=== PATIENT | female | born 1980 | race Caucasian/White ===

== ENCOUNTER 2018-07-18 12:21 | Emergency (ER) | payer BC ==
--- NOTE | 2018-07-18 14:51 | OBHP ---
Datetime: 07/18/2018 13:16 IP Adm Impression: Term, intrauterine IP Admit Plan: Observation/Evaluation; Discharge home Admit Comment, IP Provider: 38 yo female G1Po @ 39.0 GA presents because of lower pelvic pain. Pelvic pain begain this morning at 2am but denies gush of fluid. She denies vaginal bleeding, and loss of movement. PE: No acute distress Heart: S1 and S2, no murmurs, gallops or rubs. Lungs: Clear auscultation bilaterally. Abdomen: Gravid, soft, non-tender Vaginal Exam: No lesions present on inspection. Patient is 0cm dilated and station is -1. monitor: FHR: 120; Moderate, accelerations present and no decelerations. Category 1 tracing. Assessment: 38 yo female G1Po @ 39.0 GA presents because of lower pelvic pain found to have no cer vical change on exam. Plan: - patient and monitor was observed for >30min. - Patient being discharged and was counseled on attending her schedule appointment on Jennifer rsday but if anything were to change, including vaginal bleeding, gush of fluid or decreased mo vement to come back to the hospital. Addenudum by Dr. Becerril: I have evaluated the patient independently and I agree with the above Pelvic Type - PN: Adequate Extremities - PN: Normal Abdomen - PN: Normal Back - PN: Normal Breast - PN: Not Done Lungs - PN: Normal Heart - PN: Normal Thyroid - PN: Normal Neurologic - PN: Normal HEENT - PN: Normal General - PN: Normal FHR - Baseline A Provider: 120 Comments, ACOG Physical Exam: PE: No acute distress Heart: S1 and S2, no murmurs, gallops or rubs. Lungs: Clear auscultation bilaterally. Abdomen: Gravid, soft, non-tender Vaginal Exam: No lesions present on inspection. Patient is 0cm dilated and station is -1. monitor: FHR: 120; Moderate, accelerations present and no decelerations. Category 1 tracing. Vital Signs Provider: Reviewed; Within Normal Limits IP Chief Complaint: Uterine contractions NICHD Variability Prov Fetus A: Moderate 6-25bpm NICHD Accel Fetus A IP Provider: [id number] FHR Category Provider Fetus A: Category I NICHD Decel Fetus A IP Provider: None Dilatation, Provider: 0 Station, Provider: -1 Genitourinary Exam: Normal DTRs - PN: Not Done
--- NOTE | 2018-07-18 14:51 | OBDCSUM ---
Datetime: 07/18/2018 13:46 Discharged to, Provider: Home Follow up at, Provider: Doron Disch Instr Activity: Normal activity Disch Instr Diet: Regular Discharge Diagnosis, Provider: False Labor - Undelivered Discharge Time: 07/18/2018 13:46 Follow up in weeks, Provider: next well OB visit Disch Referrals: None
[2018-07-18 20:02] VITALS: BP 107/62; PULSE 81
== END 2018-07-18 13:30 | disposition home or self-care (01) ==
LOC: H.EROB2 12:21
DX: O26.93 Pregnancy related conditions, unspecified, third trimester (principal); R10.2 Pelvic and perineal pain; Z3A.39 39 weeks gestation of pregnancy

== ENCOUNTER 2018-07-19 08:02 | Inpatient (IN) | payer BC ==
[2018-07-19 08:04] VITALS: BMI 25.2
[2018-07-19] MEDS ORDERED: OXYTOCIN/0.9 % NS 20 UNIT/1,000 ML BAG IV ONE (08:05)
[2018-07-19] MEDS ORDERED: Oxytocin 30 UNIT 30 UNITS/500 ML BAG IV ONE ×2 (08:05→22:51)
[2018-07-19 10:47] LABS: HEMOGLOBIN 13.1 g/dL (12.0-16.0); MEAN CELL VOLUME 92.5 fl (81.0-99.0); MEAN CORPUSCULAR HEMOGLOBIN 31.3 pg (27.0-31.0); MEAN CORPUSCULAR HGB CONC 33.8 g/dL (33.0-37.0); RBC 4.2 Mil/uL (3.80-5.20); RED CELL DISTRIBUTION WIDTH 12.8 % (11.5-14.5)
[2018-07-19 18:43] VITALS: RESP 18
--- NOTE | 2018-07-19 22:46 | OBADHP ---
Datetime: 07/18/2018 13:16 Admit Comment, IP Provider: 38 yo female G1Po @ 39.0 GA presents because of lower pelvic pain. Pelvic pain begain this morning at 2am but denies gush of fluid. She denies vaginal bleeding, and loss of movement. PE: No acute distress Heart: S1 and S2, no murmurs, gallops or rubs. Lungs: Clear auscultation bilaterally. Abdomen: Gravid, soft, non-tender Vaginal Exam: No lesions present on inspection. Patient is 0cm dilated and station is -1. monitor: FHR: 120; Moderate, accelerations present and no decelerations. Category 1 tracing. Assessment: 38 yo female G1Po @ 39.0 GA presents because of lower pelvic pain found to have no cer vical change on exam. Plan: - patient and monitor was observed for >30min. - Patient being discharged and was counseled on attending her schedule appointment on Jennifer rsday but if anything were to change, including vaginal bleeding, gush of fluid or decreased mo vement to come back to the hospital. Addenudum by Dr. Becerril: I have evaluated the patient independently and I agree with the above Pelvic Type - PN: Adequate Extremities - PN: Normal Abdomen - PN: Normal Back - PN: Normal Breast - PN: Not Done Lungs - PN: Normal Heart - PN: Normal Thyroid - PN: Normal Neurologic - PN: Normal HEENT - PN: Normal General - PN: Normal FHR - Baseline A Provider: 120 Comments, ACOG Physical Exam: PE: No acute distress Heart: S1 and S2, no murmurs, gallops or rubs. Lungs: Clear auscultation bilaterally. Abdomen: Gravid, soft, non-tender Vaginal Exam: No lesions present on inspection. Patient is 0cm dilated and station is -1. monitor: FHR: 120; Moderate, accelerations present and no decelerations. Category 1 tracing. Vital Signs Provider: Reviewed; Within Normal Limits IP Chief Complaint: Uterine contractions NICHD Variability Prov Fetus A: Moderate 6-25bpm NICHD Accel Fetus A IP Provider: [id number] FHR Category Provider Fetus A: Category I NICHD Decel Fetus A IP Provider: None Dilatation, Provider: 0 Station, Provider: -1 Genitourinary Exam: Normal DTRs - PN: Not Done IP Adm Impression: Term, intrauterine IP Admit Plan: Observation/Evaluation; Discharge home
[2018-07-19] MEDS ORDERED: Acetaminophen-Codeine 300/30 mg Tab PO PRN (22:51)
[2018-07-19] MEDS ORDERED: Benzocaine/Menthol SPRAY TOP PRN (22:51)
[2018-07-19] MEDS ORDERED: Oxycodone/Acetaminophen 5/325 mg Tab PO PRN ×2 (22:51)
--- NOTE | 2018-07-19 23:06 | OBDS ---
MATERNAL INFORMATION Estimated Blood Loss (ml): 300ml Maternal Complications: None Provider Comments: delivery of live baby boy 9/9 clear fluid cord with 3 vessels first degree laceration and repair LABOR SUMMARY EDC: 07/21/2018 00:00 No. Babies in Womb: 1 LABOR INFORMATION Reason for Induction: Not Applicable Onset of Labor: 07/19/2018 13:00 Group B Beta Strep: Negative Antibiotics # of Doses: na Antibiotics Time of Last Dose: na Steroids Given: None Reason Steroids Not Administered: Not Applicable MEMBRANES Membranes Rupture Method: Artificial Rupture of Membranes: 07/19/2018 12:24 Amniotic Fluid Color: Clear Amniotic Fluid Amount: Small VAGINAL DELIVERY Episiotomy: None Laceration Extension: First Degree Laceration Type: Perineal Laceration Repair Note: repair of first degree laceration with 2-0 chromic Count Comment: correct INFANT INFORMATION BABY A Gestational Age at Delivery: 39.5 Gestational Status: Term IDENTIFICATION/MEDS BABY A ID Band Number: [id number]
[2018-07-20 03:02] VITALS: O2SAT 98
[2018-07-20 06:51] LABS: BASO % 0.1 % (0.0-2.0); LYMPH # 1.1 K/uL (1.0-4.3); LYMPH % 6.6 % (20.0-40.0); MEAN CELL VOLUME 91.5 fl (81.0-99.0); MEAN CORPUSCULAR HEMOGLOBIN 31.7 pg (27.0-31.0); MEAN CORPUSCULAR HGB CONC 34.6 g/dL (33.0-37.0); MEAN PLATELET VOLUME 9.8 fl (7.2-11.7); MONO # 1.9 K/uL (0.0-0.8); MONO % 11.5 % (0.0-10.0); NEUT # 13.5 K/uL (1.8-7.0); NEUT % 81.8 % (50.0-75.0); PLATELET COUNT 184 K/uL (130-400); RBC 3.46 Mil/uL (3.80-5.20); RED CELL DISTRIBUTION WIDTH 12.9 % (11.5-14.5); WHITE BLOOD COUNT 16.5 K/uL (4.8-10.8)
[2018-07-20] MEDS ORDERED: Influenza Vaccine (5 YR UP)/PF 60 MCG/0.5 ML SYR IM ONE (11:00)
[2018-07-20 13:40] LABS: BANDS 1 % (0-2); HYPOCHROMIC SLIGHT; LYMPHOCYTE 5 % (20-50); MONOCYTE 10 % (0-10); NEUTROPHIL 84 % (42-75); PLATELET ESTIMATE NORMAL (NORMAL); TOTAL CELLS COUNTED 100
[2018-07-20 13:41] LABS: TOXIC GRANULATION PRESENT
--- NOTE | 2018-07-20 19:28 | NBCIR ---
Datetime: 07/19/2018 07:57 Circumcision Request: Yes Consent Signed: Written Consent Signed and on Chart Position: Supine; Papoose Board Circumcision Time Out: Correct Patient Identity; Correct Side and Site are Marked; Accurate Procedur e Consent Form; Agreement on Procedure to be Done; Correct Patient Position; Relevant Images and Resu lts are Properly Labeled and Displayed; Addressed Need to Administer Antibiotics or Fluids for Irriga tion; Safety Precautions Based on Patient History or Medication Use Site Prep: Povidine Iodine Circumcision Date/Time: 07/20/2018 19:24 Block/Anesthestics: Emla Cream Equipment Used: Mogen Clamp Systemic Medications: None Complications: None Status: Tolerated Procedure Well Procedure Note: after consent was signed and under asceptic condition baby was circumcised using mog en Datetime: 07/18/2018 12:21 PT-NAME: HANNA MOJICA
--- NOTE | 2018-07-20 19:33 | OBPPN ---
Datetime: 07/20/2018 19:28 PP Pain Prov: Within normal limits PP Nausea Prov: Denies PP Flatus Prov: Yes PP BM Prov: No PP Breasts Prov: Normal PP Heart Prov: Normal PP Lungs Prov: Normal PP Abdomen/Uterus Prov: Normal PP Lochia Prov: Normal PP Vulva/Perineum Prov: Normal PP CVA Tenderness Prov: Normal PP Extremities Prov: Normal PP Progress Prov: Normal PP Impression Prov: Normal progression PP Plan Prov: Continue present management PP Progress Note Prov: stable ppd1 no complaints continue present care IP PP Procedures: None Vital Signs Provider PP: Reviewed; Within Normal Limits
--- NOTE | 2018-07-21 08:02 | OBPPN ---
Datetime: 07/21/2018 07:58 PP Pain Prov: Within normal limits PP Nausea Prov: Denies PP Flatus Prov: Yes PP BM Prov: Yes PP Breasts Prov: Normal PP Heart Prov: Normal PP Lungs Prov: Normal PP Abdomen/Uterus Prov: Normal PP Lochia Prov: Normal PP Vulva/Perineum Prov: Normal PP CVA Tenderness Prov: Normal PP Extremities Prov: Normal PP Progress Prov: Normal PP Impression Prov: Normal progression PP Plan Prov: Continue present management PP Progress Note Prov: stable ppd2 continue present IP PP Procedures: None Vital Signs Provider PP: Reviewed; Within Normal Limits
--- NOTE | 2018-07-21 08:09 | OBDCSUM ---
Datetime: 07/21/2018 08:01 Discharged to, Provider: Home Follow up at, Provider: Disch Instr Activity: Normal activity; Bedrest; May be up to bathroom; May be up for meals; May Show er Disch Instr Diet: Regular Discharge Instructions, Provider: Routine instructions given Discharge Diagnosis, Provider: Term Delivered Discharge Time: 07/21/2018 08:01 Follow up in weeks, Provider: 5-6 weeks in office Disch Referrals: None Disch Activity Restrictions: No exercising; No lifting; No driving; Minimize walking; Minimize stair -climbing; No sexual activity; Nothing in vagina - [place], tampons, douche Discharge Comment, Provider: jeremiah home today call office if any problems Contraception after Delivery: Undecided
[2018-07-21 20:13] VITALS: BP 110/69; PULSE 67; TEMP 98.1
== END 2018-07-21 15:21 | disposition home or self-care (01) | DRG 807 ==
LOC: H.EROB2 08:02 → H.L&D 08:04 → H.OB/GYN 07-20 01:00
PROVIDERS: ADMIT Specialist; ATTEND Specialist
PROC: 10E0XZZ Delivery of Products of Conception, External Approach (ICD-10-PCS; principal; 2018-07-19)
PROC: 0HQ9XZZ Repair Perineum Skin, External Approach (ICD-10-PCS; 2018-07-19)
PROC: 10907ZC Drainage of Amniotic Fluid, Therapeutic from Products of Conception, Via Natural or Artificial Opening (ICD-10-PCS; 2018-07-19)
PROC: 4A1HXCZ Monitoring of Products of Conception, Cardiac Rate, External Approach (ICD-10-PCS; 2018-07-19)
DX: O70.0 First degree perineal laceration during delivery (principal); Z37.0 Single live birth; Z3A.39 39 weeks gestation of pregnancy